=== PATIENT | female | born 1945 | race Two or more races ===

== ENCOUNTER 2016-04-13 07:21 | Day surgery (SDC) | payer OTHER ==
[2016-04-12 14:21] VITALS: BMI 26.4
[2016-04-13 09:40] VITALS: TEMP 97.5
--- NOTE | 2016-04-13 09:47 | PN ---
Progress Note (short form) - Note Progress Note: LADI performed today with anesthesia. Full report to follow. Pt tolerated procedure well. There were no complications. Focal nodular calcification on the tip of the anterior mitral valve leaflet and associated chordae. No left atrial or left atrial appendage thrombus. No evidence of PFO. There is severe non-mobile atheroma in the aortic arch and proximal descending aorta.
[2016-04-13 09:49] VITALS: PULSE 88
[2016-04-13 10:38] VITALS: BP 121/59
== END 2016-04-13 10:38 | disposition home or self-care (01) ==
LOC: JASU-ENDO 07:21
PROVIDERS: ATTEND Internal Medicine Cardiovascular Disease
PROC: B246ZZ4 Ultrasonography of Right and Left Heart, Transesophageal (ICD-10-PCS; principal; 2016-04-13 08:15)
DX: I70.0 Atherosclerosis of aorta (principal)
CPT/HCPCS: 93312; 93325

== ENCOUNTER 2016-08-07 11:58 | Emergency (ER) | payer MEDICARE, OTHER ==
[2016-08-07 12:16] VITALS: BP 123/68; PULSE 84; TEMP 98.2; BMI 27.4
--- NOTE | 2016-08-07 12:53 | PDOC ---
History of Present Illness - General Chief Complaint: Pain Stated Complaint: LEG PAIN Time Seen by Provider: 08/07/16 12:51 History Source: Patient Exam Limitations: Language Barrier (The patient's adult son provided divehi translation) - History of Present Illness Initial Comments: CHIEF COMPLAINT: 71 y/o afebrile female with PMH HTN, HLD, DM c/o left hip pain since yesterday. HISTORY OF PRESENT ILLNESS: The patient was recently not walking much because she had a bad case of pneumonia in the [place] and was intubated. Once she was well enough, her son and daughter brought her to the [place]. Her doctor, Pedrito Martin, instructed her 5 days ago to try to get up and start walking again. She began getting up and walking every day for the past 5 days. She admits she's been walking to sikhism and as much as she can around the house. Yesterday, her left hip began hurting, especially when she walks. She took 2 tylenol last night with little relief. She denies fall, trauma to hip, redness/swelling/streaking to affected area. Vital signs on arrival are within normal limits. REVIEW OF SYSTEMS: GENERAL/CONSTITUTIONAL: No fever/chills. No weakness. No weight change. HEAD, EYES, EARS, NOSE AND THROAT: No change in vision. No ear pain or discharge. No sore throat. CARDIOVASCULAR: No chest pain or shortness of breath. RESPIRATORY: No cough, wheezing, or hemoptysis. GASTROINTESTINAL: No abd pain, nausea, vomiting, diarrhea. GENITOURINARY: No dysuria, frequency, or change in urination. MUSCULOSKELETAL: +left hip pain. No neck or back pain. SKIN: No rash or easy bruising. NEUROLOGIC: No headache, vertigo, loss of consciousness, or loss of sensation. PHYSICAL EXAM: VITAL_SIGNS: within normal limits GENERAL_APPEARANCE: alert, cooperative, mild obvious discomfort with ambulation MENTAL_STATUS: speech clear, oriented X 3, responds appropriately to questions. NEURO: motor intact and sensory intact in injured extremity. EXTREMITIES: Reproducible pain with palpation of left proximal, lateral thigh, distal to left greater trochanter. No pelvic instability or TTP. No erythema, warmth, edema or streaking to affected area. No obvious deformities. No length length discrepancy. The left leg is not fixed in external or internal rotation. SKIN: warm, dry, good color. Past History - Past Medical History Allergies/Adverse Reactions: Allergies Allergy/AdvReac Type Severity Reaction Status Date / Time No Known Drug Allergies Allergy Verified 08/07/16 12:13 Home Medications: Ambulatory Orders Aspirin Coated [Ecotrin -] 81 mg PO DAILY 06/04/12 Atorvastatin Calcium 10 mg PO DAILY 06/05/12 Sitagliptin Phos/Metformin HCl [Janumet 50-1,000 mg Tablet] 1 each PO DAILY Cholecalciferol (Vitamin D3) [Vitamin D3 -] 50,000 unit PO DAILY 04/13/16 Esomeprazole Magnesium 40 mg PO DAILY 04/13/16 Linagliptin [Tradjenta] 5 mg PO DAILY 04/13/16 Olmesartan/Hydrochlorothiazide [Benicar Hct 40-25 mg Tablet] 1 each PO DAILY Anemia: No Asthma: No Cancer: No Cardiac Disorders: Yes (CAD STATUS POST CARDIAC STENT 2009) CVA: No COPD: No CHF: No Dementia: No Diabetes: Yes (NIDDM) GI Disorders: No Disorders: Yes (UTI??) HTN: Yes Hypercholesterolemia: Yes Liver Disease: No Seizures: No Thyroid Disease: No - Surgical History Abdominal Surgery: No Appendectomy: No Cardiac Surgery: No Cholecystectomy: No Lung Surgery: Yes (CARDIAC CATHERIZATION,) Neurologic Surgery: No Orthopedic Surgery: No - Psycho/Social/Smoking Cessation Hx Anxiety: No Suicidal Ideation: No Smoking History: Never smoked Have you smoked in the past 12 months: Yes Number of Cigarettes Smoked Daily: 5 Information on smoking cessation initiated: No 'Breaking Loose' booklet given: 04/13/16 Hx Alcohol Use: No Drug/Substance Use Hx: No Substance Use Type: None *Physical Exam - Vital Signs Last Vital Signs Temp Pulse Resp BP Pulse Ox 98.2 F 84 18 123/68 99 08/07/16 12:14 08/07/16 12:14 08/07/16 12:14 08/07/16 12:14 08/07/16 12:14 Medical Decision Making - Medical Decision Making A/P: 71 y/o female c/o left hip pain s/p increased ambulation over the past 5 days. Plan is as follows: 1. Xray left hip/pelvis Xray left hip/pelvis IMPRESSION: No acute pathology. Gave the patient and her family members the results. suggested she apply ice to the area, stretch, take tylenol for pain and continue to walk on the leg. Instructed her to f/u with her doctor this week and return to the ER with any worsening or concerning symptoms. The patient verbalizes understanding of all instructions, has no further questions and is awaiting discharge. *DC/Admit/Observation/Transfer Diagnosis at time of Disposition: Musculoskeletal pain of lower extremity Qualifiers: Laterality: left Qualified Code(s): M79.605 - Pain in left leg - Discharge Dispostion Disposition: HOME Condition at time of disposition: Good - Referrals Referrals: Pedrito Martin MD [Primary Care Provider] - Call tomorrow - Patient Instructions Printed Discharge Instructions: DI for Musculoskeletal Pain Additional Instructions: Discharge Instructions: -Your xrays were negative for broken bones -Please take over the counter tylenol if you need to for pain -Apply ice and stretch the affected leg -Continue to walk on the leg as tolerated -Call Dr. Martin tomorrow and schedule follow up appointment -Return to the ER with any worsening or concerning symptoms. Instrucciones de simi: -Tus milly x fueron negativos para huesos rotos -Por favor tome el contador de tylenol si lo necesita para el dolor -Aplicar hielo y estirar la pierna afectada -Continuar caminando en la pierna segn lo tolerado - Llame al Dr. Veronica grace y programe la jacobo de seguimiento -Vuelva a la karthik de emergencias con cualquier empeoramiento o sntomas relacionados. Print Language: ARMENIAN
--- NOTE | 2016-08-07 13:17 | PDOC ---
*Physical Exam - Vital Signs Last Vital Signs Temp Pulse Resp BP Pulse Ox 98.2 F 84 18 123/68 99 08/07/16 12:14 08/07/16 12:14 08/07/16 12:14 08/07/16 12:14 08/07/16 12:14 Medical Decision Making - Medical Decision Making 08/07/16 13:17 Pt seen by the Advanced Practice Provider under my direct supervision Ancillary studies reviewed I agree with plan as outlined by the Advanced Practice Provider ARIN Pereyra *DC/Admit/Observation/Transfer Diagnosis at time of Disposition: Musculoskeletal leg pain - Discharge Dispostion Disposition: HOME Condition at time of disposition: Good - Referrals Referrals: Pedrito Martin MD [Primary Care Provider] - Call tomorrow - Patient Instructions Printed Discharge Instructions: DI for Musculoskeletal Pain Additional Instructions: Discharge Instructions: -Your xrays were negative for broken bones -Please take over the counter tylenol if you need to for pain -Apply ice and stretch the affected leg -Continue to walk on the leg as tolerated -Call Dr. Martin tomorrow and schedule follow up appointment -Return to the ER with any worsening or concerning symptoms. Instrucciones de simi: -Tus milly x fueron negativos para huesos rotos -Por favor tome el contador de tylenol si lo necesita para el dolor -Aplicar hielo y estirar la pierna afectada -Continuar caminando en la pierna segn lo tolerado - Llame al Dr. Veronica grace y programe la jacobo de seguimiento -Vuelva a la karthik de emergencias con cualquier empeoramiento o sntomas relacionados. Print Language: IRANIAN
== END 2016-08-07 15:17 | disposition home or self-care (01) ==
LOC: JER 11:58
DX: M79.605 Pain in left leg (principal); I10 Essential (primary) hypertension; E11.9 Type 2 diabetes mellitus without complications; E78.00 Pure hypercholesterolemia, unspecified; Z95.5 Presence of coronary angioplasty implant and graft
CPT/HCPCS: 73523-TC; 99281-25